=== PATIENT | female | born 1935 | race Caucasian/White ===

== ENCOUNTER 2016-09-17 13:59 | Inpatient (IN) | payer OTHER ==
[~2016-09-17] VITALS: Ht 152.4 cm; Wt 71.9 kg
[~2016-09-17 13:59] MED LIST: ALBUTEROL17 GM IH; CRESTOR20 MG PO; METOPROLOL SUCC25 MG PO; PREDNISONE50 MG PO; TRILIPIX135 MG PO
[2016-09-17 15:15] LABS: CREATINE KINASE 88 IU/L (1-294); TOTAL CK 88 IU/L (1-294)
[2016-09-17 15:15] LABS: BASE EXCESS -4.1 mEq/L (-3 to +3); BICARBONATE 21.6 mEq/L (22-26); CARBOXY HGB 1.5 % (0-5); COMMENTS - BLOOD GASES A+C+; DEVICE NC; METHEMOGLOBIN 1.3 % (0-1.5); O2 FLOW 4 L/MIN; PCO2 41 mm Hg (35-45); PO2 197 mm Hg (80-100); SITE RR; TOTAL RESP RATE 30 resp/min; pH 7.33 (7.35-7.45)
[2016-09-17 15:20] LABS: MCH 28.7 PG (29.0-34.0); MCHC 31.5 G/DL (30.0-36.0); MCV 91.1 FL (83-99); MEAN PLAT.VOLUME 8.5 uM^3 (9.5-12.4); PLATELET COUNT 178 K/uL (156-360); RBC DIS.WIDTH-CV 14.5 % (11.8-14.6); RBC DIS.WIDTH-SD 48.8 % (39-53); RED BLOOD COUNT 4.28 M/uL (3.80-5.20); WHITE BLOOD COUNT 23.6 K/uL (4.1-10.2)
[2016-09-17 15:21] LABS: CK-MB 0.5 ng/mL (0.0-4.9)
[2016-09-17 15:25] LABS: INTER. NORMALIZED RATIO 1.3; PROTHROMBIN TIME 13.2 (9.2-11.2); PTT 25.1 (25-32)
[2016-09-17 15:34] LABS: CHLORIDE 113 mEq/L (99-109); POTASSIUM 3.3 mEq/L (3.7-5.4); SODIUM 141 mEq/L (136-147)
[2016-09-17 15:36] LABS: GLUCOSE 173 mg/dL (70-99)
[2016-09-17 15:37] LABS: ANION GAP 9 MEQ/L (2-14); TROP-I INTERPRETATION NEGATIVE; TROPONIN-I 0.15 ng/mL (0.0-0.30)
[2016-09-17 15:38] LABS: TOTAL BILIRUBIN 0.3 mg/dL (0.0-1.0)
[2016-09-17 15:39] LABS: ALKALINE PHOSPHATASE 48 IU/L (3-129)
[2016-09-17 15:40] LABS: GFR ESTIMATE (CALCULATED) 39 mL/min/
[2016-09-17 15:41] LABS: UREA NITROGEN (BUN) 29 mg/dL (9-23)
[2016-09-17 16:00] LABS: ADD MIUA? YES; BILIRUBIN NEGATIVE; BLOOD MODERATE; COLOR YELLOW ((YELLOW)); GLUCOSE (STRIP) NEGATIVE; KETONES 5; LEUKOCYTES SMALL; NITRITE NEGATIVE; PROTEIN (STRIP) 100; SPECIFIC GRAVITY 1.012 (1.000-1.030); UROBILINOGEN 0.2 MG/DL (0.2-1.0)
[2016-09-17 16:03] LABS: BACTERIA RARE /HPF; EPITHELIAL CELLS RARE /HPF; MUCUS TRACE /LPF; RED BLOOD CELLS 0-5 /HPF (0-5); UCUL ADDED? NO; WHITE BLOOD CELLS 30-40 /HPF (0-5)
[2016-09-17 16:26] LABS: ANISOCYTOSIS 1+; EOSINOPHIL ABS CT 0; INSTRUMENT ABS NEUTROPHIL CT 21.5 K/uL; LYMPHOCYTES 1.5 % (15.0-45.0); PLAT.SUFFICIENCY ADEQUATE; PLATELET CLUMPS PRESENT - PLATELET COUNT APPEARS ADQ.; SEG.NEUTROPHILS 77.5 % (46.0-76.0); STOMATOCYTES 1+
[2016-09-17] MEDS ORDERED: ALBUTEROL2.5 MG/3 M IH (18:30)
[2016-09-17] MEDS ORDERED: PRINIVIL5 MG PO (18:30)
[2016-09-17] MEDS ORDERED: FENOFIBRATE145 M1 PO (18:30)
[2016-09-17] MEDS ORDERED: CRESTOR40 MG PO (18:30)
[2016-09-17] MEDS ORDERED: METOPROLOL SUCC50 MG PO (18:30)
[2016-09-17] MEDS ORDERED: TYLENOL PM1 CAPLET PO (18:32)
[2016-09-17] MEDS ORDERED: TRADJENTA5 MG PO (18:33)
[2016-09-17 19:38] VITALS: BP 156/69
[2016-09-17 22:13] LABS: TROP-I INTERPRETATION NEGATIVE; TROPONIN-I 0.18 ng/mL (0.0-0.30)
[2016-09-17 23:38] VITALS: BP 114/82
[2016-09-18] VITALS (7 sets, daily range): BP systolic 107–136; BP diastolic 62–72
[2016-09-18 06:04] LABS: TROP-I INTERPRETATION NEGATIVE; TROPONIN-I 0.16 ng/mL (0.0-0.30)
[2016-09-18 06:18] LABS: HEMATOCRIT 35.7 % (36.0-46.0); MCH 29.6 PG (29.0-34.0); MCHC 30.8 G/DL (30.0-36.0); PLATELET COUNT 130 K/uL (156-360); RBC DIS.WIDTH-CV 14.7 % (11.8-14.6); RED BLOOD COUNT 3.72 M/uL (3.80-5.20)
[2016-09-18 06:29] LABS: WHITE BLOOD COUNT 11.7 K/uL (4.1-10.2)
[2016-09-18 06:37] LABS: ANION GAP 9 MEQ/L (2-14); CHLORIDE 116 MEQ/L (99-109); GFR ESTIMATE (CALCULATED) 57 mL/min/; SAMPLE HEMOLYSIS CHECK 0; SAMPLE ICTERIC CHECK 0; SAMPLE LIPEMIA CHECK 0; SODIUM 143 MEQ/L (136-147); UREA NITROGEN (BUN) 25 mg/dL (9-23)
[2016-09-18 06:38] LABS: GLUCOSE 106 mg/dL (70-99); POTASSIUM 4.4 MEQ/L (3.7-5.4)
[2016-09-19 03:42] VITALS: BP 141/88
[2016-09-19 08:18] VITALS: BP 143/68
[2016-09-19 09:10] LABS: HEMATOCRIT 37.7 % (36.0-46.0); MCHC 31.6 G/DL (30.0-36.0); MEAN PLAT.VOLUME 8.9 uM^3 (9.5-12.4); PLATELET COUNT 139 K/uL (156-360); RBC DIS.WIDTH-CV 14.6 % (11.8-14.6); RED BLOOD COUNT 4.11 M/uL (3.80-5.20); WHITE BLOOD COUNT 14.6 K/uL (4.1-10.2)
[2016-09-19 09:20] LABS: CHLORIDE 111 mEq/L (99-109); POTASSIUM 4.4 mEq/L (3.7-5.4); SODIUM 140 mEq/L (136-147)
[2016-09-19 09:21] LABS: GLUCOSE 160 mg/dL (70-99)
[2016-09-19 09:22] LABS: MCV 91.7 FL (83-99)
[2016-09-19 09:23] LABS: ANION GAP 10 MEQ/L (2-14)
[2016-09-19 09:25] LABS: GFR ESTIMATE (CALCULATED) > 59 mL/min/
[2016-09-19 09:26] LABS: UREA NITROGEN (BUN) 16 mg/dL (9-23)
[2016-09-19 12:13] VITALS: BP 132/70
[2016-09-19 15:56] VITALS: BP 140/80
[2016-09-19 20:42] VITALS: BP 134/66
[2016-09-20 04:09] VITALS: BP 129/72
[2016-09-20 08:00] VITALS: BP 126/66
[2016-09-20 11:20] VITALS: BP 139/74
== END 2016-09-20 15:36 | DRG 690 ==
LOC: EME → EDBD 13:59 → EME 13:59 → 5SOUTH 16:48 → EDOF 16:48 → 5SOUTH 19:33
PROVIDERS: Emergency Medicine; Internal Medicine; Nurse Practitioner Adult Health
DX: N39.0 Urinary tract infection, site not specified (principal); N17.9 Acute kidney failure, unspecified; E86.0 Dehydration; T67.8XXA Other effects of heat and light, initial encounter; E87.6 Hypokalemia; R41.82 Altered mental status, unspecified; J44.9 Chronic obstructive pulmonary disease, unspecified; R73.03 Prediabetes; E78.5 Hyperlipidemia, unspecified; R32 Unspecified urinary incontinence; I12.9 Hypertensive chronic kidney disease with stage 1 through stage 4 chronic kidney disease, or unspecified chronic kidney disease; N18.3 Chronic kidney disease, stage 3 (moderate); F03.90 Unspecified dementia, unspecified severity, without behavioral disturbance, psychotic disturbance, mood disturbance, and anxiety; Z87.891 Personal history of nicotine dependence; I25.2 Old myocardial infarction; Z63.8 Other specified problems related to primary support group; Y92.009 Unspecified place in unspecified non-institutional (private) residence as the place of occurrence of the external cause
CPT/HCPCS: 36600; 71010; 80048; 80053; 81003; 82550; 82553; 82803; 83605; 84484; 85025; 85027; 85610; 85730; 87040; 87801; 94640 76; 94799; 99202; 99281; 99285; J0696; J1644; J7030; J7050; J7120